=== PATIENT | female | born 1970 | race Caucasian/White ===

== ENCOUNTER 2020-03-12 05:26 | Emergency (ER) | payer MEDICAID ==
--- NOTE | 2020-03-12 05:43 | EDM.PDOC ---
ED HPI GENERAL MEDICAL PROBLEM - General Chief Complaint: Genitourinary Problem Stated Complaint: POSS UTI Time Seen by Provider: 03/12/20 05:28 Source of Information: Reports: Patient History Limitations: Reports: No Limitations - History of Present Illness INITIAL COMMENTS - FREE TEXT/NARRATIVE: Patient is come in complaining of burning on void. This is been going on for 2 days or so. Says her urine has been cloudy. Friends or acquaintances have apparently said it sounds like she has a urinary tract infection. She is never had a urinary tract infection before she says. No fever. No nausea vomiting diarrhea respiratory symptoms or any other symptom of acute medical illness otherwise. No flank pain or tenderness. No chaz abdominal pain. No risk factors identified though the patient is a cigarette smoker. No identified medical problems at all. Patient says "I am healthy as a horse." She has not taken any medication or tried any other measure to moderate her symptoms. Left Lower Abdomen Pain Score (Numeric/FACES): 4 - Related Data Allergies Allergy/AdvReac Type Severity Reaction Status Date / Time No Known Allergies Allergy Verified 03/12/20 05:37 Home Meds: Home Meds Sulfamethoxazole/Trimethoprim [Bactrim Ds Tablet] 1 each PO BID #14 tablet 03/12 [Rx] Past Medical History - Past Health History Medical/Surgical History: Denies Medical/Surgical History (Except for apparent orthopedic procedure sometime ago on her foot) Social & Family History - Tobacco Use Smoking Status *Q: Current Every Day Smoker ED ROS GENERAL - Review of Systems Review Of Systems: Comprehensive ROS is negative, except as noted in HPI. ED EXAM, RENAL/ - Physical Exam Exam: See Below Exam Limited By: No Limitations General Appearance: Alert, WD/WN, No Apparent Distress Eye Exam: Bilateral Eye: EOMI, PERRL Ears: Normal External Exam Nose: Normal Inspection Throat/Mouth: Normal Inspection, Normal Lips, Normal Voice, No Airway Compromise Neck: Normal Inspection, Supple, Non-Tender Respiratory/Chest: No Respiratory Distress, Lungs Clear, Normal Breath Sounds, No Accessory Muscle Use, Chest Non-Tender Cardiovascular: Regular Rate, Rhythm GI/Abdominal: Soft, Non-Tender Back Exam: Normal Inspection. No: CVA Tenderness (L), CVA Tenderness (R) Extremities: Normal Inspection, Non-Tender Neurological: Alert, Oriented, Normal Cognition, No Motor/Sensory Deficits Psychiatric: Normal Affect, Normal Mood Skin Exam: Warm, Dry, Normal Color Course - Vital Signs Last Recorded V/S: Last Vital Signs Temp 36.8 C 03/12/20 05:37 Pulse 90 03/12/20 05:37 Resp 16 03/12/20 05:37 BP 143/104 H 03/12/20 05:37 Pulse Ox 100 03/12/20 05:37 - Orders/Labs/Meds Orders: Active Orders 24 hr Category Date Time Status CULTURE URINE [RM] Stat Lab 03/12/20 05:40 Received UA W/MICROSCOPIC [URIN] Stat Lab 03/12/20 05:40 Results Labs: Laboratory Tests 03/12/20 03/12/20 Range/Units 05:40 05:40 Urine Color Yellow (Yellow) Urine Appearance Cloudy H (Clear) Urine pH 6.5 (5.0-8.0) Ur Specific [place] > or = 1.030 (1.005-1.030) Urine Protein 2+ H (Negative) Urine Glucose (UA) Negative (Negative) Urine Ketones Negative (Negative) Urine Occult Blood 2+ H (Negative) Urine Nitrite Positive H (Negative) Urine Bilirubin Negative (Negative) Urine Urobilinogen 0.2 (0.2-1.0) Ur Leukocyte Esterase 3+ H (Negative) Urine HCG, Qual Negative (NEGATIVE) - Re-Assessments/Exams Free Text/Narrative Re-Assessment/Exam: 03/12/20 06:37 The patient has evidence of a urinary tract infection. Discussed with her. She is tyler to antibiotics and has not been treated for anything with an antibiotic that she can recall. She has never been treated for urinary tract infection. We will treat her with Bactrim. She has good primary care coverage and is to let her primary know about this visit. She was informed that the culture will be done within 2 days and her primary can check on that for appropriateness of antibiotic. Blood pressure is a little bit elevated. Patient thinks maybe this is because she was apprehensive about coming here. Primary is to follow this and make sure she does not need to be treated for this. See instructions below. She is also urged to stop smoking cigarettes. 03/12/20 06:39 Departure - Departure Time of Disposition: 06:39 Disposition: Home, Self-Care 01 Condition: Good Clinical Impression: Blood pressure elevated without history of HTN, Tobacco abuse counseling Urinary tract infection Qualifiers: Urinary tract infection type: site unspecified Hematuria presence: without hematuria Qualified Code(s): N39.0 - Urinary tract infection, site not specified - Discharge Information Prescriptions: Sulfamethoxazole/Trimethoprim [Bactrim Ds Tablet] 1 each PO BID #14 tablet Referrals: PCP,Not In Area [Primary Care Provider] - Forms: ED Department Discharge Additional Instructions: You have been seen for evidence of urinary tract infection. As you have not been treated for urinary tract infection in the past and have not had any recent antibiotic use we will treat this with Bactrim. This should be appropriate for the infection. A culture of the urine has been set up and will be reported out within 2 days. On the antibiotic you should feel better within 24 hours. If not let your primary or the ER consider changing the antibiotic. Once the culture is done the appropriateness of the antibiotic can be definitively determined. Return to ER for nausea vomiting fever increased pain or any troubling symptoms at all. Your blood pressure was noted to be a little high. This may be because of your illness or apprehensiveness but you need to get with your primary physician to make sure that you do not have high blood pressure and you do not need to be treated for it. And you are urged to stop smoking cigarettes as we discussed. Sepsis Event Note - Focused Exam Vital Signs: Vital Signs Temp Pulse Resp BP Pulse Ox 03/12/20 05:37 36.8 C 90 16 143/104 H 100 Date Exam was Performed: 03/12/20 Time Exam was Performed: 06:41 - My Orders Last 24 Hours: My Active Orders 03/12/20 05:40 CULTURE URINE [RM] Stat UA W/MICROSCOPIC [URIN] Stat - Assessment/Plan Last 24 Hours: My Active Orders 03/12/20 05:40 CULTURE URINE [RM] Stat UA W/MICROSCOPIC [URIN] Stat
== END 2020-03-12 06:55 | disposition home or self-care (01) ==
LOC: JD.ED 05:26
DX: N39.0 Urinary tract infection, site not specified (principal); R03.0 Elevated blood-pressure reading, without diagnosis of hypertension; Z71.6 Tobacco abuse counseling; F17.200 Nicotine dependence, unspecified, uncomplicated; Z79.2 Long term (current) use of antibiotics
CPT/HCPCS: 81001; 81025; 87086; 87088; 87186; 99283